=== PATIENT | female | born 1945 | race African-American/Black ===

== ENCOUNTER 2017-03-05 04:23 | Inpatient (IN) | payer MEDICARE, MEDICAID ==
[~2017-03-05] VITALS: Ht 167.6 cm; Wt 107.0 kg
[2017-03-05] MEDS ORDERED: METHYLPREDNISOLONE SOD SUCC 125 MG/2 ML VIAL IV STA (04:37)
[2017-03-05] MEDS ORDERED: IPRATROPIUM BROMIDE (0.02%) 0.5MG/2.5ML NEB HHN STA (04:37)
[2017-03-05 05:12] LABS: BASOPHILS % 0.5 % (0.0-2.0); EOSINOPHILS % 0.8 % (0.0-5.0); HEMATOCRIT. 36.3 % (36.0-48.0); HEMOGLOBIN. 11.8 g/dL (12.0-16.0); LYMPHOCYTES % 29.7 % (20.0-50.0); MEAN CORPUSCULAR HEMOGLOBIN 26.7 pg (28.0-32.0); MEAN CORPUSCULAR VOLUME 82.2 fL (81.0-99.0); MEAN PLATELET VOLUME 9.4 fl (7.4-10.4); MONOCYTES % 9.2 % (2.0-8.0); NEUTROPHILS % 59.8 % (40.0-76.0); PLATELET 210 x1000/uL (130-400); RED BLOOD CELL COUNT 4.42 mill/uL (4.2-5.4); RED CELL DISTRIBUTION WIDTH 19.5 % (11.6-14.6)
[2017-03-05 05:13] LABS: CARBON DIOXIDE 29 mEq/L (21-32); CHLORIDE 107 mEq/L (98-107)
[2017-03-05 05:16] LABS: TROPONIN I < 0.02 ng/mL (0.00-0.04)
[2017-03-05] MEDS: ALBUTEROL (0.083%) 2.5MG/3ML NEB HHN SCH ×3 (05:21→06:07)
[2017-03-05 05:29] LABS: PROTHROMBIN TIME 10.1 sec (9.4-11.6)
[2017-03-05] MEDS ORDERED: LEVOFLOXACIN 750MG PREMIX 150 ML IV ONE (05:45)
[2017-03-05] MEDS ORDERED: MAGNESIUM 2 G PREMIX 50 ML IV ONE (06:15)
[2017-03-05 08:00] VITALS: BP 144/96
[2017-03-05] MEDS ORDERED: TRAMADOL 50MG TABLET PO PRN (08:00)
[2017-03-05] MEDS ORDERED: DIPHENHYDRAMINE 50MG/ML VIAL IV PRN (08:00)
[2017-03-05] MEDS ORDERED: NA PHOS,M-B/NA PHOS,DI-BA ENEMA 118ML PR PRN (08:00)
[2017-03-05] MEDS ORDERED: ONDANSETRON HCL 4MG/2ML VIAL IV PRN (08:00)
[2017-03-05] MEDS ORDERED: ACETAMINOPHEN 325MG TABLET PO PRN (08:00)
[2017-03-05] MEDS ORDERED: GUAIFENESIN 200MG/10ML SUGAR FREE UDC PO PRN (08:00)
[2017-03-05] MEDS ORDERED: IPRATROPIUM/ALBUTEROL 0.5-3(2.5)MG/3ML NEB INH PRN (08:00)
[2017-03-05] MEDS ORDERED: CLONIDINE 0.1MG TABLET PO PRN (08:00)
[2017-03-05] MEDS ORDERED: ZOLPIDEM TARTRATE 5MG TABLET PO PRN (08:00)
[2017-03-05] MEDS ORDERED: NITROGLYCERIN 0.4MG TABLET SL SL PRN (08:00)
[2017-03-05] MEDS ORDERED: MAGNESIUM/ALUMINUM HYDROXIDE/SIMETHICONE 30ML UDC PO PRN (08:00)
[2017-03-05] MEDS ORDERED: LORAZEPAM 2MG/ML CPJ IV PRN (08:00)
[2017-03-05] MEDS: LEVOFLOXACIN 500MG PREMIX 100 ML IV SCH (09:00)
[2017-03-05] MEDS: AMLODIPINE 10MG TABLET PO SCH (10:21)
[2017-03-05] MEDS: DOCUSATE SODIUM 100MG CAPSULE PO PRN (10:21)
[2017-03-05] MEDS: ASPIRIN 325MG EC TABLET PO SCH (10:21)
[2017-03-05] MEDS: ENOXAPARIN 40MG/0.4ML SYR SUBCUT SCH (10:23)
[2017-03-05] MEDS: GUAIFENESIN/DM 600MG/30MG ER TAB 12HR PO SCH ×2 (10:32→21:16)
[2017-03-05 10:35] VITALS: BP 132/94
[2017-03-05 12:00] VITALS: BP 149/94
[2017-03-05] MEDS: FAMOTIDINE 20MG/2ML VIAL IV SCH ×2 (12:28→21:16)
[2017-03-05] MEDS: METHYLPREDNISOLONE SOD SUCC 125 MG/2 ML VIAL IV SCH ×2 (15:39→21:16)
[2017-03-05 16:00] VITALS: BP 111/78
[2017-03-05] MEDS ORDERED: METF500T4 PO (16:03)
[2017-03-05] MEDS ORDERED: VALS160T2 PO (16:03)
[2017-03-05] MEDS ORDERED: ATOR10TA69 PO (16:03)
[2017-03-05 16:34] LABS: CREATINE KINASE 537 IU/L (26-192); TROPONIN I < 0.02 ng/mL (0.00-0.04)
[2017-03-05 16:35] LABS: CREATINE KINASE MB FRACTION 2.6 ng/mL (0.5-3.6)
[2017-03-05 18:26] VITALS: BP 120/72
[2017-03-05] MEDS ORDERED: DEXTROSE 50% WATER 50ML SYRINGE IV PRN (19:00)
[2017-03-05 20:00] VITALS: BP 124/80
[2017-03-05] MEDS: IPRATROPIUM/ALBUTEROL 0.5-3(2.5)MG/3ML NEB HHN SCH (20:17)
[2017-03-05] MEDS: BLOOD SUGAR DIAGNOSTIC STRIP TEST SCH (21:00)
[2017-03-05] MEDS: INSULIN LISPRO 100 UNITS/ML SUBCUT SCH (21:36)
[2017-03-05 23:43] LABS: CREATINE KINASE 490 IU/L (26-192); CREATINE KINASE MB FRACTION 2.9 ng/mL (0.5-3.6); TROPONIN I < 0.02 ng/mL (0.00-0.04)
[2017-03-06] VITALS: BP 148/94
[2017-03-06] MEDS: IPRATROPIUM/ALBUTEROL 0.5-3(2.5)MG/3ML NEB HHN SCH ×6 (00:07→20:45)
[2017-03-06 00:33] LABS: *AMPHETAMINES SCREEN URINE NEGATIVE (NEGATIVE); *BARBITURATES SCREEN URINE NEGATIVE (NEGATIVE); *BENZODIAZEPINES SCREEN URINE NEGATIVE (NEGATIVE); *COCAINE SCREEN URINE NEGATIVE (NEGATIVE); CANNABINOID URINE SCREEN NEGATIVE (NEGATIVE); METHADONE URINE SCREEN NEGATIVE (NEGATIVE); OPIATES URINE SCREEN PRESUMTIVE POSITIVE (NEGATIVE); PHENCYCLIDINE URINE SCREEN NEGATIVE (NEGATIVE)
[2017-03-06 04:00] VITALS: BP 112/66
[2017-03-06] MEDS: METHYLPREDNISOLONE SOD SUCC 125 MG/2 ML VIAL IV SCH ×3 (05:49→21:14)
[2017-03-06] MEDS: DOCUSATE SODIUM 100MG CAPSULE PO PRN ×2 (05:52→09:50)
[2017-03-06] MEDS: BLOOD SUGAR DIAGNOSTIC STRIP TEST SCH ×4 (05:58→21:00)
[2017-03-06] MEDS: INSULIN LISPRO 100 UNITS/ML SUBCUT SCH ×4 (06:30→21:17)
[2017-03-06 08:00] VITALS: BP 111/72
[2017-03-06] MEDS: FAMOTIDINE 20MG/2ML VIAL IV SCH ×2 (09:44→21:13)
[2017-03-06] MEDS: AMLODIPINE 10MG TABLET PO SCH (09:45)
[2017-03-06] MEDS: ENOXAPARIN 40MG/0.4ML SYR SUBCUT SCH (09:45)
[2017-03-06] MEDS: ASPIRIN 325MG EC TABLET PO SCH (09:45)
[2017-03-06] MEDS: GUAIFENESIN/DM 600MG/30MG ER TAB 12HR PO SCH ×2 (09:46→21:14)
[2017-03-06] MEDS: LEVOFLOXACIN 500MG PREMIX 100 ML IV SCH (09:54)
[2017-03-06 12:00] VITALS: BP 104/65
[2017-03-06] MEDS ORDERED: NICOTINE 21MG PATCH TD NR (13:00)
[2017-03-06] MEDS: AZITHROMYCIN 500 MG in DEXT 5% WATER 250 ML IV SCH (15:59)
[2017-03-06 16:00] VITALS: BP 127/100
[2017-03-06 17:13] LABS: CLARITY URINE CLOUDY (CLEAR); COLOR URINE DARK YELLOW (YELLOW); GLUCOSE URINE NEGATIVE (NEGATIVE); KETONES URINE NEGATIVE (NEGATIVE); LEUKOCYTE ESTERASE URINE NEGATIVE (NEGATIVE); NITRITE URINE NEGATIVE (NEGATIVE); OCCULT BLOOD URINE NEGATIVE (NEGATIVE); PH URINE 5.5 (4.5-8.0); PROTEIN URINE 1+ (NEGATIVE); SPECIFIC GRAVITY URINE 1.037 (1.005-1.030)
[2017-03-06 20:00] VITALS: BP 131/77
[2017-03-06] MEDS: BUDESONIDE 0.5MG/2ML NEB HHN SCH (20:54)
[2017-03-06] MEDS: ENOXAPARIN 30MG/0.3ML SYR SUBCUT SCH (21:14)
[2017-03-07] VITALS: BP 104/60
[2017-03-07] MEDS: IPRATROPIUM/ALBUTEROL 0.5-3(2.5)MG/3ML NEB HHN SCH ×6 (00:32→19:31)
[2017-03-07 04:00] VITALS: BP 120/72
[2017-03-07] MEDS: METHYLPREDNISOLONE SOD SUCC 125 MG/2 ML VIAL IV SCH ×3 (05:50→22:06)
[2017-03-07] MEDS: BLOOD SUGAR DIAGNOSTIC STRIP TEST SCH ×4 (05:55→21:00)
[2017-03-07] MEDS: INSULIN LISPRO 100 UNITS/ML SUBCUT SCH ×4 (05:55→22:15)
[2017-03-07 08:00] VITALS: BP 147/96
[2017-03-07] MEDS: FAMOTIDINE 20MG/2ML VIAL IV SCH ×2 (09:07→22:07)
[2017-03-07] MEDS: AMLODIPINE 10MG TABLET PO SCH (09:07)
[2017-03-07] MEDS: ENOXAPARIN 30MG/0.3ML SYR SUBCUT SCH ×2 (09:07→22:07)
[2017-03-07] MEDS: ASPIRIN 325MG EC TABLET PO SCH (09:08)
[2017-03-07] MEDS: GUAIFENESIN/DM 600MG/30MG ER TAB 12HR PO SCH ×2 (09:08→22:07)
[2017-03-07] MEDS: NICOTINE 21MG PATCH TD SCH (09:09)
[2017-03-07] MEDS: LEVOFLOXACIN 500MG PREMIX 100 ML IV SCH (10:29)
[2017-03-07 12:00] VITALS: BP 137/88
[2017-03-07] MEDS: BUDESONIDE 0.5MG/2ML NEB HHN SCH ×2 (13:09→19:31)
[2017-03-07] MEDS ORDERED: LACTULOSE 20G/30ML UDC PO NR (14:15)
[2017-03-07] MEDS: AZITHROMYCIN 500 MG in DEXT 5% WATER 250 ML IV SCH (14:39)
[2017-03-07] MEDS: ACETYLCYSTEINE 100MG/ML 10% VIAL 4ML INH SCH (16:58)
[2017-03-07 20:00] VITALS: BP 113/70
[2017-03-07] MEDS ORDERED: ACETYLCYSTEINE 200MG/ML 20% VIAL 4ML PO SCH (21:00)
[2017-03-08] VITALS: BP 121/88
[2017-03-08] MEDS: ACETYLCYSTEINE 100MG/ML 10% VIAL 4ML INH SCH ×2 (01:10→09:16)
[2017-03-08] MEDS: IPRATROPIUM/ALBUTEROL 0.5-3(2.5)MG/3ML NEB HHN SCH ×6 (01:10→21:26)
[2017-03-08 04:00] VITALS: BP 116/67
[2017-03-08] MEDS: BLOOD SUGAR DIAGNOSTIC STRIP TEST SCH ×4 (06:10→21:36)
[2017-03-08] MEDS: INSULIN LISPRO 100 UNITS/ML SUBCUT SCH ×4 (06:11→21:49)
[2017-03-08] MEDS: METHYLPREDNISOLONE SOD SUCC 125 MG/2 ML VIAL IV SCH (06:14)
[2017-03-08 08:00] VITALS: BP 145/89
[2017-03-08] MEDS: AMLODIPINE 10MG TABLET PO SCH (08:53)
[2017-03-08] MEDS: FAMOTIDINE 20MG/2ML VIAL IV SCH ×2 (08:53→21:37)
[2017-03-08] MEDS: GUAIFENESIN/DM 600MG/30MG ER TAB 12HR PO SCH ×2 (08:53→21:37)
[2017-03-08] MEDS: ENOXAPARIN 30MG/0.3ML SYR SUBCUT SCH ×2 (08:53→21:36)
[2017-03-08] MEDS: ASPIRIN 325MG EC TABLET PO SCH (09:12)
[2017-03-08] MEDS: BUDESONIDE 0.5MG/2ML NEB HHN SCH ×2 (09:16→21:26)
[2017-03-08] MEDS: NICOTINE 21MG PATCH TD SCH (09:59)
[2017-03-08] MEDS: LEVOFLOXACIN 500MG PREMIX 100 ML IV SCH (09:59)
[2017-03-08] MEDS ORDERED: TERBUTALINE SULFATE 1MG/ML VIAL SUBCUT NR ×2 (11:15→17:00)
[2017-03-08 11:57] VITALS: BP 122/73
[2017-03-08] MEDS: PREDNISONE 20MG TABLET PO SCH ×2 (13:38→21:52)
[2017-03-08] MEDS: AZITHROMYCIN 500 MG in DEXT 5% WATER 250 ML IV SCH (15:13)
[2017-03-08 16:33] VITALS: BP 122/85
[2017-03-08] MEDS: MONTELUKAST SODIUM 10MG TABLET PO SCH (17:13)
[2017-03-08 20:00] VITALS: BP 124/87
[2017-03-09] VITALS: BP 131/87
[2017-03-09] MEDS: IPRATROPIUM/ALBUTEROL 0.5-3(2.5)MG/3ML NEB HHN SCH ×6 (00:42→21:06)
[2017-03-09 04:00] VITALS: BP 121/81
[2017-03-09] MEDS: PREDNISONE 20MG TABLET PO SCH ×3 (06:22→20:53)
[2017-03-09] MEDS: BLOOD SUGAR DIAGNOSTIC STRIP TEST SCH ×4 (06:22→20:35)
[2017-03-09] MEDS: INSULIN LISPRO 100 UNITS/ML SUBCUT SCH ×4 (06:26→20:53)
[2017-03-09 08:00] VITALS: BP 110/69
[2017-03-09] MEDS: LEVOFLOXACIN 500MG PREMIX 100 ML IV SCH (09:10)
[2017-03-09] MEDS: FAMOTIDINE 20MG/2ML VIAL IV SCH ×2 (09:10→20:46)
[2017-03-09] MEDS: ASPIRIN 325MG EC TABLET PO SCH (09:11)
[2017-03-09] MEDS: ENOXAPARIN 30MG/0.3ML SYR SUBCUT SCH ×2 (09:11→20:52)
[2017-03-09] MEDS: GUAIFENESIN/DM 600MG/30MG ER TAB 12HR PO SCH ×2 (09:11→20:54)
[2017-03-09] MEDS: AZITHROMYCIN 500 MG TABLET PO SCH (09:11)
[2017-03-09] MEDS: AMLODIPINE 10MG TABLET PO SCH (09:15)
[2017-03-09] MEDS: NICOTINE 21MG PATCH TD SCH (09:15)
[2017-03-09] MEDS: BUDESONIDE 0.5MG/2ML NEB HHN SCH (09:19)
[2017-03-09 12:00] VITALS: BP 116/85
[2017-03-09 16:00] VITALS: BP 128/77
[2017-03-09] MEDS: MONTELUKAST SODIUM 10MG TABLET PO SCH (17:35)
[2017-03-09 20:00] VITALS: BP 115/81
[2017-03-10] VITALS: BP 118/75
[2017-03-10] MEDS: IPRATROPIUM/ALBUTEROL 0.5-3(2.5)MG/3ML NEB HHN SCH ×6 (03:58→20:30)
[2017-03-10] MEDS: PREDNISONE 20MG TABLET PO SCH ×3 (06:19→21:27)
[2017-03-10] MEDS: BLOOD SUGAR DIAGNOSTIC STRIP TEST SCH ×4 (06:24→21:35)
[2017-03-10] MEDS: INSULIN LISPRO 100 UNITS/ML SUBCUT SCH ×4 (06:34→21:40)
[2017-03-10 08:00] VITALS: BP 121/95
[2017-03-10] MEDS: GUAIFENESIN/DM 600MG/30MG ER TAB 12HR PO SCH ×2 (08:35→21:27)
[2017-03-10] MEDS: AZITHROMYCIN 500 MG TABLET PO SCH (08:36)
[2017-03-10] MEDS: ASPIRIN 325MG EC TABLET PO SCH (08:36)
[2017-03-10] MEDS: AMLODIPINE 10MG TABLET PO SCH (08:36)
[2017-03-10] MEDS: FAMOTIDINE 20MG/2ML VIAL IV SCH ×2 (08:36→21:27)
[2017-03-10] MEDS: NICOTINE 21MG PATCH TD SCH (08:37)
[2017-03-10] MEDS: LEVOFLOXACIN 500MG PREMIX 100 ML IV SCH (08:37)
[2017-03-10] MEDS: ENOXAPARIN 30MG/0.3ML SYR SUBCUT SCH ×2 (08:37→21:27)
[2017-03-10 12:00] VITALS: BP 121/87
[2017-03-10 16:00] VITALS: BP 110/73
[2017-03-10] MEDS: MONTELUKAST SODIUM 10MG TABLET PO SCH (16:59)
[2017-03-10 20:00] VITALS: BP 123/86
[2017-03-11] VITALS (7 sets, daily range): BP systolic 99–122; BP diastolic 58–88
[2017-03-11] MEDS: IPRATROPIUM/ALBUTEROL 0.5-3(2.5)MG/3ML NEB HHN SCH ×4 (01:05→12:50)
[2017-03-11] MEDS: PREDNISONE 20MG TABLET PO SCH (06:29)
[2017-03-11] MEDS: INSULIN LISPRO 100 UNITS/ML SUBCUT SCH ×2 (06:31→11:24)
[2017-03-11] MEDS: BLOOD SUGAR DIAGNOSTIC STRIP TEST SCH ×2 (06:31→11:22)
[2017-03-11] MEDS: ENOXAPARIN 30MG/0.3ML SYR SUBCUT SCH (09:00)
[2017-03-11] MEDS: NICOTINE 21MG PATCH TD SCH (09:00)
[2017-03-11] MEDS: AMLODIPINE 10MG TABLET PO SCH (09:01)
[2017-03-11] MEDS: ASPIRIN 325MG EC TABLET PO SCH (09:01)
[2017-03-11] MEDS: FAMOTIDINE 20MG/2ML VIAL IV SCH (09:01)
[2017-03-11] MEDS: GUAIFENESIN/DM 600MG/30MG ER TAB 12HR PO SCH (09:01)
[2017-03-11] MEDS: AZITHROMYCIN 500 MG TABLET PO SCH (09:01)
[2017-03-11] MEDS ORDERED: LEVOFLOXACIN 500MG TABLET PO SCH (11:00)
[2017-03-11] MEDS ORDERED: PREDNISONE 20MG TABLET PO SCH (17:15)
== END 2017-03-11 15:40 | disposition home or self-care (01) | DRG 133 ==
LOC: ER 04:23 → 5WST 06:31 → ENRESERV 06:52 → SUPCPDRO 07:54
PROVIDERS: ADMIT Internal Medicine; ATTEND Internal Medicine
DX: J96.00 Acute respiratory failure, unspecified whether with hypoxia or hypercapnia (principal); J18.9 Pneumonia, unspecified organism; I11.0 Hypertensive heart disease with heart failure; I50.9 Heart failure, unspecified; Z99.81 Dependence on supplemental oxygen; E11.9 Type 2 diabetes mellitus without complications; J44.0 Chronic obstructive pulmonary disease with (acute) lower respiratory infection; E66.9 Obesity, unspecified; M47.892 Other spondylosis, cervical region; J44.1 Chronic obstructive pulmonary disease with (acute) exacerbation; E78.00 Pure hypercholesterolemia, unspecified; E78.5 Hyperlipidemia, unspecified; F17.210 Nicotine dependence, cigarettes, uncomplicated; Z79.4 Long term (current) use of insulin; Z79.84 Long term (current) use of oral hypoglycemic drugs; Z79.899 Other long term (current) drug therapy; Z90.49 Acquired absence of other specified parts of digestive tract; Z68.38 Body mass index [BMI] 38.0-38.9, adult; Z71.6 Tobacco abuse counseling; Z82.49 Family history of ischemic heart disease and other diseases of the circulatory system; Z82.5 Family history of asthma and other chronic lower respiratory diseases
CPT/HCPCS: 36415; 71010; 80053; 80061; 80305; 81001; 82550; 82553; 82962; 83036; 83880; 84484; 85025; 85610; 87086; 87502; 93005; 93306; 93970; 94640; 94664; 96374; 96375; 97162; 97166; 99285; J0456; J1650; J1815; J1956; J2930; J3105; J3475; J3490; J7030; J7050; J7060; J7512; J7608; J7611; J7620; J7626

== ENCOUNTER 2019-01-23 01:06 | Inpatient (IN) | payer MEDICARE, OTHER ==
[~2019-01-23] VITALS: Ht 165.1 cm; Wt 82.7 kg
[~2019-01-23 01:06] MED LIST: ATOR10TA69 PO; METF-414 PO; VALS160T2 PO
[2019-01-23] MEDS ORDERED: MAGNESIUM 2 G PREMIX 50 ML IV ONE (01:30)
[2019-01-23] MEDS ORDERED: METHYLPREDNISOLONE SOD SUCC 125 MG/2 ML VIAL IV ONE (01:30)
[2019-01-23 02:18] LABS: BASOPHILS % 0.6 % (0.0-2.0); EOSINOPHILS % 3.4 % (0.0-5.0); HEMATOCRIT. 37.3 % (36.0-48.0); HEMOGLOBIN. 11.8 g/dL (12.0-16.0); LYMPHOCYTES % 30.6 % (20.0-50.0); MEAN CORPUSCULAR HEMOGLOBIN 26.9 pg (28.0-32.0); MEAN CORPUSCULAR VOLUME 85.2 fL (81.0-99.0); MONOCYTES % 8.5 % (2.0-8.0); NEUTROPHILS % 56.9 % (40.0-76.0); PLATELET 155 x1000/uL (130-400); RED BLOOD CELL COUNT 4.38 mill/uL (4.2-5.4); RED CELL DISTRIBUTION WIDTH 18.2 % (11.6-14.6)
[2019-01-23 02:43] LABS: CHLORIDE 110 mEq/L (98-107)
[2019-01-23] MEDS ORDERED: ALBUTEROL (0.5%) 2.5MG/0.5ML NEB HHN ONE (04:15)
[2019-01-23] MEDS ORDERED: ACETAMINOPHEN 325MG TABLET PO PRN (07:00)
[2019-01-23] MEDS ORDERED: ONDANSETRON HCL 4MG/2ML INJ IV PRN (07:00)
[2019-01-23] MEDS ORDERED: LORAZEPAM 0.5MG TABLET PO PRN (07:00)
[2019-01-23] MEDS ORDERED: NA PHOS,M-B/NA PHOS,DI-BA ENEMA 118ML PR PRN (07:00)
[2019-01-23] MEDS ORDERED: MAGNESIUM/ALUMINUM HYDROXIDE/SIMETHICONE 30ML UDC PO PRN (07:00)
[2019-01-23] MEDS ORDERED: ZOLPIDEM TARTRATE 5MG TABLET PO PRN (07:00)
[2019-01-23] MEDS ORDERED: NITROGLYCERIN 0.4MG TABLET SL SL PRN (07:00)
[2019-01-23] MEDS ORDERED: TRAMADOL 50MG TABLET PO PRN (07:00)
[2019-01-23] MEDS ORDERED: CLONIDINE 0.1MG TABLET PO PRN (07:00)
[2019-01-23] MEDS ORDERED: IPRATROPIUM/ALBUTEROL 0.5-3(2.5)MG/3ML NEB NEB PRN (07:00)
[2019-01-23] MEDS ORDERED: GUAIFENESIN 200MG/10ML SUGAR FREE UDC PO PRN (07:00)
[2019-01-23] MEDS ORDERED: DOCUSATE SODIUM 100MG CAPSULE PO PRN (07:00)
[2019-01-23] MEDS ORDERED: DEXTROSE 50% WATER 50ML SYRINGE IV PRN (07:15)
[2019-01-23 09:18] VITALS: BP 140/89
[2019-01-23] MEDS: INSULIN LISPRO 100 UNITS/ML SUBCUT SCH ×4 (09:30→21:00)
[2019-01-23] MEDS: BLOOD SUGAR DIAGNOSTIC STRIP TEST SCH ×4 (10:24→21:34)
[2019-01-23] MEDS ORDERED: LEVOFLOXACIN 500MG PREMIX 100 ML IV NR (10:30)
[2019-01-23] MEDS: ASPIRIN 325MG EC TABLET PO SCH (10:30)
[2019-01-23] MEDS: GUAIFENESIN/DM 600MG/30MG ER TAB 12HR PO SCH ×2 (10:31→21:33)
[2019-01-23] MEDS: LISINOPRIL 10MG TABLET PO SCH ×2 (10:31→21:41)
[2019-01-23] MEDS: METHYLPREDNISOLONE SOD SUCC 125 MG/2 ML VIAL IV SCH ×2 (10:32→17:21)
[2019-01-23 10:48] VITALS: BP 140/89
[2019-01-23] MEDS ORDERED: LEVO200T8 MT (11:28)
[2019-01-23] MEDS ORDERED: AMLO5TAB88 MT (11:28)
[2019-01-23 12:37] VITALS: BP 138/89
[2019-01-23] MEDS: FAMOTIDINE 20MG TABLET PO SCH (14:09)
[2019-01-23] MEDS: ENOXAPARIN 40MG/0.4ML SYR SUBCUT SCH (14:10)
[2019-01-23 16:50] VITALS: BP 137/89
[2019-01-23 16:55] LABS: CREATINE KINASE 392 IU/L (26-192); CREATINE KINASE MB FRACTION 2.4 ng/mL (0.5-3.6)
[2019-01-23 20:00] VITALS: BP 121/69
[2019-01-23] MEDS: IPRATROPIUM/ALBUTEROL 0.5-3(2.5)MG/3ML NEB HHN SCH (21:01)
[2019-01-23] MEDS: ATORVASTATIN CALCIUM 10MG TABLET PO SCH (21:33)
[2019-01-24 00:07] VITALS: BP 132/79
[2019-01-24 00:30] LABS: CREATINE KINASE 456 IU/L (26-192)
[2019-01-24 00:31] LABS: CREATINE KINASE MB FRACTION 2.8 ng/mL (0.5-3.6)
[2019-01-24] MEDS: IPRATROPIUM/ALBUTEROL 0.5-3(2.5)MG/3ML NEB HHN SCH ×6 (00:58→21:14)
[2019-01-24] MEDS: METHYLPREDNISOLONE SOD SUCC 125 MG/2 ML VIAL IV SCH ×2 (02:07→10:28)
[2019-01-24 04:00] VITALS: BP_SYST 132; BP_SYST 135; BP_DIAS 79; BP_DIAS 87
[2019-01-24] MEDS: BLOOD SUGAR DIAGNOSTIC STRIP TEST SCH ×4 (06:10→21:12)
[2019-01-24] MEDS: FAMOTIDINE 20MG TABLET PO SCH (08:14)
[2019-01-24] MEDS: GUAIFENESIN/DM 600MG/30MG ER TAB 12HR PO SCH ×2 (08:14→21:14)
[2019-01-24] MEDS: LISINOPRIL 10MG TABLET PO SCH ×2 (08:14→21:24)
[2019-01-24] MEDS: ASPIRIN 325MG EC TABLET PO SCH (08:14)
[2019-01-24] MEDS: INSULIN LISPRO 100 UNITS/ML SUBCUT SCH ×4 (08:30→21:00)
[2019-01-24] MEDS: LEVOFLOXACIN 250MG PREMIX 50 ML IV SCH (08:31)
[2019-01-24] MEDS: ENOXAPARIN 40MG/0.4ML SYR SUBCUT SCH (08:31)
[2019-01-24 08:39] VITALS: BP 145/89
[2019-01-24 12:08] VITALS: BP 137/74
[2019-01-24] MEDS ORDERED: IPRATROPIUM/ALBUTEROL 0.5-3(2.5)MG/3ML NEB HHN PRN (14:30)
[2019-01-24 16:42] VITALS: BP 151/70
[2019-01-24] MEDS: NICOTINE 14MG PATCH TD SCH (17:48)
[2019-01-24] MEDS: METHYLPREDNISOLONE SOD SUCC 40 MG/ML VIAL IV SCH (17:48)
[2019-01-24 20:00] VITALS: BP 109/61
[2019-01-24] MEDS: ATORVASTATIN CALCIUM 10MG TABLET PO SCH (21:13)
[2019-01-25] VITALS: BP 122/79
[2019-01-25] MEDS: IPRATROPIUM/ALBUTEROL 0.5-3(2.5)MG/3ML NEB HHN SCH ×6 (00:18→21:24)
[2019-01-25] MEDS: METHYLPREDNISOLONE SOD SUCC 40 MG/ML VIAL IV SCH ×3 (02:22→20:31)
[2019-01-25 04:00] VITALS: BP 118/77
[2019-01-25] MEDS: BLOOD SUGAR DIAGNOSTIC STRIP TEST SCH ×4 (06:35→20:31)
[2019-01-25] MEDS: INSULIN LISPRO 100 UNITS/ML SUBCUT SCH ×4 (07:50→20:31)
[2019-01-25 08:00] VITALS: BP 126/73
[2019-01-25] MEDS: LEVOFLOXACIN 250MG PREMIX 50 ML IV SCH (09:08)
[2019-01-25] MEDS: NICOTINE 14MG PATCH TD SCH (09:08)
[2019-01-25] MEDS: GUAIFENESIN/DM 600MG/30MG ER TAB 12HR PO SCH ×2 (09:08→20:31)
[2019-01-25] MEDS: FAMOTIDINE 20MG TABLET PO SCH (09:08)
[2019-01-25] MEDS: ASPIRIN 325MG EC TABLET PO SCH (09:08)
[2019-01-25] MEDS: LISINOPRIL 10MG TABLET PO SCH ×2 (09:08→20:31)
[2019-01-25] MEDS: ENOXAPARIN 40MG/0.4ML SYR SUBCUT SCH (09:09)
[2019-01-25 12:00] VITALS: BP 134/69
[2019-01-25 16:00] VITALS: BP 118/72
[2019-01-25 20:29] VITALS: BP 135/90
[2019-01-25] MEDS: ATORVASTATIN CALCIUM 10MG TABLET PO SCH (20:31)
[2019-01-26 00:19] VITALS: BP 122/80
[2019-01-26] MEDS: IPRATROPIUM/ALBUTEROL 0.5-3(2.5)MG/3ML NEB HHN SCH ×5 (00:41→21:01)
[2019-01-26 04:46] VITALS: BP 138/87
[2019-01-26] MEDS: BLOOD SUGAR DIAGNOSTIC STRIP TEST SCH ×4 (07:00→21:00)
[2019-01-26] MEDS: INSULIN LISPRO 100 UNITS/ML SUBCUT SCH ×4 (07:50→21:00)
[2019-01-26 08:00] VITALS: BP 130/90
[2019-01-26] MEDS: GUAIFENESIN/DM 600MG/30MG ER TAB 12HR PO SCH ×2 (09:10→22:41)
[2019-01-26] MEDS: ENOXAPARIN 40MG/0.4ML SYR SUBCUT SCH (09:10)
[2019-01-26] MEDS: ASPIRIN 325MG EC TABLET PO SCH (09:10)
[2019-01-26] MEDS: METHYLPREDNISOLONE SOD SUCC 40 MG/ML VIAL IV SCH (09:10)
[2019-01-26] MEDS: LISINOPRIL 10MG TABLET PO SCH ×2 (09:11→22:42)
[2019-01-26] MEDS: FAMOTIDINE 20MG TABLET PO SCH (09:11)
[2019-01-26] MEDS: NICOTINE 14MG PATCH TD SCH (09:11)
[2019-01-26] MEDS ORDERED: LEVOFLOXACIN 250MG TABLET PO SCH (11:00)
[2019-01-26 12:00] VITALS: BP 158/84
[2019-01-26] MEDS ORDERED: BISACODYL 5MG TABLET PO PRN (12:30)
[2019-01-26] MEDS: DOCUSATE SODIUM 100MG CAPSULE PO SCH ×2 (13:02→17:10)
[2019-01-26] MEDS: ACETYLCYSTEINE 100MG/ML 10% VIAL 4ML INH SCH ×2 (14:36→16:23)
[2019-01-26 16:00] VITALS: BP 155/94
[2019-01-26 20:45] VITALS: BP 120/67
[2019-01-26] MEDS: ATORVASTATIN CALCIUM 10MG TABLET PO SCH (22:41)
[2019-01-27 00:46] VITALS: BP 99/68
[2019-01-27] MEDS: IPRATROPIUM/ALBUTEROL 0.5-3(2.5)MG/3ML NEB HHN SCH ×4 (04:38→11:59)
[2019-01-27 04:44] VITALS: BP 118/68
[2019-01-27] MEDS: BLOOD SUGAR DIAGNOSTIC STRIP TEST SCH ×2 (07:01→12:00)
[2019-01-27] MEDS: INSULIN LISPRO 100 UNITS/ML SUBCUT SCH ×2 (07:50→12:00)
[2019-01-27] MEDS: ACETYLCYSTEINE 100MG/ML 10% VIAL 4ML INH SCH (08:18)
[2019-01-27 08:45] VITALS: BP 115/85
[2019-01-27] MEDS ORDERED: PREDNISONE 20MG TABLET PO SCH (09:00)
[2019-01-27] MEDS: FAMOTIDINE 20MG TABLET PO SCH (09:50)
[2019-01-27] MEDS: GUAIFENESIN/DM 600MG/30MG ER TAB 12HR PO SCH (09:50)
[2019-01-27] MEDS: LISINOPRIL 10MG TABLET PO SCH (09:51)
[2019-01-27] MEDS: DOCUSATE SODIUM 100MG CAPSULE PO SCH (09:53)
[2019-01-27] MEDS: ENOXAPARIN 40MG/0.4ML SYR SUBCUT SCH (09:54)
[2019-01-27] MEDS: ASPIRIN 325MG EC TABLET PO SCH (09:54)
[2019-01-27] MEDS: NICOTINE 14MG PATCH TD SCH (09:54)
[2019-01-27 12:04] VITALS: BP 115/85
[2019-01-27 12:35] VITALS: BP 109/74
[2019-01-28] MEDS ORDERED: PREDNISONE 20MG TABLET PO SCH (09:00)
== END 2019-01-27 14:55 | disposition home or self-care (01) | DRG 140 ==
LOC: ER 01:31 → 6WST 04:08 → EDBEDREQ 04:14 → EDBEDREQTM 04:14 → ENRESERV 07:16
PROVIDERS: ADMIT Internal Medicine; ATTEND Internal Medicine
DX: J44.1 Chronic obstructive pulmonary disease with (acute) exacerbation (principal); J96.00 Acute respiratory failure, unspecified whether with hypoxia or hypercapnia; E11.9 Type 2 diabetes mellitus without complications; E78.5 Hyperlipidemia, unspecified; F17.210 Nicotine dependence, cigarettes, uncomplicated; K59.00 Constipation, unspecified; E66.9 Obesity, unspecified; E78.00 Pure hypercholesterolemia, unspecified; I50.9 Heart failure, unspecified; I11.0 Hypertensive heart disease with heart failure; Z79.4 Long term (current) use of insulin; Z79.899 Other long term (current) drug therapy; Z99.81 Dependence on supplemental oxygen; Z90.49 Acquired absence of other specified parts of digestive tract; Z90.89 Acquired absence of other organs; Z71.6 Tobacco abuse counseling; Z68.30 Body mass index [BMI] 30.0-30.9, adult
CPT/HCPCS: 36415; 71045; 80061; 82550; 82553; 82962; 83036; 83605; 83880; 84145; 84484; 87804; 93005; 93306; 93970; 94640; 97162; 97166; 99285; J1650; J1815; J1956; J2920; J2930; J3475; J7512; J7608; J7611; J7620